=== PATIENT | female | born 1985 | race Caucasian/White ===

== ENCOUNTER 2019-08-05 13:19 | Observation (INO) | payer OTHER, SELFPAY ==
[2019-08-05] VITALS (7 sets, daily range): BP systolic 109–124; BP diastolic 66–80; PULSE 87–95
--- NOTE | 2019-08-05 13:19 | OBADM ---
This patient, Mora Goncalves, admitted to the OB room OB Post 115 for observation. Patient/family oriented to hospital policies and general routines including ID bracelet, bed and alarms, visiting hours, pain management, procedures, bathroom and other care routines, personal items, smoking policy, room service/diet, and visiting hours. Patient/Family are encouraged to report perceived risks to care and to ask questions if they do not understand what they are told or what they should do.
[2019-08-05 14:17] LABS: Add Urine Microscopic? YES; Appearance Urine Cloudy (Clear); Bacteria Urine 4+ /hpf; Bilirubin Urine Negative (Negative); Blood Urine Negative (Negative); Color Urine Yellow (Yellow); Glucose Urine UA Negative (Negative); Ketones Urine Negative (Negative); Leukocyte Esterase Ur Negative LEU/UL (Negative); Mucus Urine Rare /lpf; Nitrate Urine Negative (Negative); Protein Urine Negative (Negative); RBC Urine 0-2 /hpf (0-2); Specific Grav Ur 1.012 (1.001-1.035); Squamous Epithelial Cell Urine Many /hpf (Few); Urobilinogen Urine Negative mg/dL (<2.0); WBC Urine 0-3 /hpf
--- NOTE | 2019-08-15 10:15 | P.PNOB_ITS ---
OB - Triage/Final Diagnosis Visit Information Reason for evaluation: other (False labor) Evaluation Laboratory results: Laboratory Tests 08/05/19 13:59 Urine Color Yellow Urine Appearance Cloudy H Urine pH 7.0 Ur Specific [place] 1.012 Urine Protein Negative Urine Glucose (UA) Negative Urine Ketones Negative Ur Blood (Man) Negative Urine Nitrate Negative Urine Bilirubin Negative Urine Urobilinogen Negative Leukocyte Esterase Rfl Negative Urine RBC 0-2 Urine WBC 0-3 Ur Squamous Epith Cells Many H Urine Bacteria 4+ H Hyaline Casts 1-2 Urine Mucus Rare
== END 2019-08-05 16:10 | disposition home or self-care (01) ==
PROVIDERS: Admitting Provider Obstetrics & Gynecology; Visit Provider Obstetrics & Gynecology
DX: O47.03 False labor before 37 completed weeks of gestation, third trimester (principal); Z3A.35 35 weeks gestation of pregnancy
CPT/HCPCS: 81001; 87086; G0378; G0379

== ENCOUNTER 2019-09-04 05:02 | Inpatient (IN) | payer OTHER, SELFPAY ==
[2019-09-04] VITALS (85 sets, daily range): BP systolic 95–130; BP diastolic 54–96; PULSE 72–106; RESP 16–18; TEMP 36.2–37.3; O2SAT 99–100; BMI 32.9
--- NOTE | 2019-09-04 05:23 | LDADM ---
This patient, Mora Goncalves, was admitted to Labor/Delivery/Recovery 105 on 09/04/19 at 05:02. Plans for labor, pain management and were discussed with patient. Patient/family oriented to hospital policies and general routines including ID bracelet, bed and alarms, visiting hours, pain management, procedures, bathroom and other care routines, personal items, smoking policy, room service/diet and guest tray routines, infant security routines, and visiting hours. Patient/Family are encouraged to report perceived risks to care and to ask questions if they do not understand what they are told or what they should do. See OBIX for further documentation.
[2019-09-04 06:03] LABS: Basophils Percent Auto 0.4 % (0.2-1.2); Eosinophils Absolute Auto 0.2 K/mm3 (0-0.3); Eosinophils Percent Auto 1.8 % (0-4.4); Hematocrit 33.3 % (37.0-47.0); Hemoglobin 10.4 g/dL (12.0-15.0); Immature Granulocyte Absolute 0.04 K/mm3 (0.00-0.031); Immature Granulocyte Percent A 0.4 % (0-0.5); Lymphocytes Absolute Auto 2.76 K/mm3 (0.9-3.2); Lymphocytes Percent Auto 28.7 % (18.3-44.2); Mean Corpuscular HGB Conc 31.2 g/dl (32-36); Mean Corpuscular Hemoglobin 24.8 pg (26-34); Mean Corpuscular Volume 79.5 fl (80-100); Monocytes Absolute Auto 0.8 K/mm3 (0.1-0.6); Monocytes Percent Auto 8.7 % (2.6-8.5); Neutrophils Absolute Auto 5.8 K/mm3 (1.3-6.7); Platelet Count Result 370 k/mm3 (150-375); Red Blood Count 4.19 M/mm3 (4.2-5.4); Red Cell Distribution Width 15.6 % (11.5-14.5); White Blood Count 9.6 K/mm3 (4.5-10.0)
[2019-09-04] MEDS: LACTATED RINGERS 1,000 ML 125 ML IV CONT (06:08)
[2019-09-04] MEDS: OXYTOCIN 30 UNITS/NS 500 ML 30 UNITS/500 ML BAG IV CONT (06:19)
--- NOTE | 2019-09-04 07:41 | P.PNAN_ITS ---
Anes - Eval Pre Procedure Procedure: Labor epidural Date/Time: 09/04/19 07:41 Surgeon: Bhargavi Gerber M.D. Preop Diagnosis: pain during labor Pre Op Diagnosis: induction of labor Patient Data Age: 34 Gender: F Height: 1.7 m Weight: 95.4 kg Last Vital Signs Temp 37.2 C 09/04/19 06:19 Pulse 88 09/04/19 07:31 BP 116/77 09/04/19 07:31 Allergies Allergy/AdvReac Type Severity Reaction Status Date / Time No Known Allergies Allergy Verified 08/17/19 14:37 Home Medications Medication Instructions Recorded Confirmed Type Vitamin D2 50,000 mg PO WEEKLY 08/05/19 09/04/19 History Laboratory Tests 09/04/19 09/04/19 05:56 05:56 WBC 9.6 K/mm3 K/mm3 (4.5-10.0) RBC 4.19 M/mm3 L M/mm3 (4.2-5.4) Hgb 10.4 g/dL L g/dL (12.0-15.0) Hct 33.3 % L % (37.0-47.0) MCV 79.5 fl L fl (80-100) MCH 24.8 pg L pg (26-34) MCHC 31.2 g/dl L g/dl (32-36) RDW 15.6 % H % (11.5-14.5) Plt Count 370 k/mm3 k/mm3 (150-375) MPV 10.0 fl fl (7.4-10.4) Immature Gran % (Auto) 0.4 % % (0-0.5) Neut % (Auto) 60.0 % % (45.5-73.1) Lymph % (Auto) 28.7 % % (18.3-44.2) [place] % (Auto) 8.7 % H % (2.6-8.5) Eos % (Auto) 1.8 % % (0-4.4) Baso % (Auto) 0.4 % % (0.2-1.2) Lymph # (Auto) 2.76 K/mm3 K/mm3 (0.9-3.2) [place] # (Auto) 0.8 K/mm3 H K/mm3 (0.1-0.6) Eos # (Auto) 0.2 K/mm3 K/mm3 (0-0.3) Baso # (Auto) 0.0 K/mm3 K/mm3 (0.0-0.1) Abs Immat Gran (auto) 0.04 K/mm3 H K/mm3 (0.00-0.031) Absolute Neuts (auto) 5.8 K/mm3 K/mm3 (1.3-6.7) Absolute Nucleated RBC 0.0 K/mm3 K/mm3 (0.0-0.012) Nucleated RBC % 0.0 % % (0.0-0.2) RPR Pending Patient hx anesthesia problems: none Family hx anesthesia problems: none [facility] Social History Social History Smoking status: Never smoker Second hand tobacco smoke exposure: No Substance use: never Gender identity (if verbalized by the patient): Female Exam Day of Procedure 09/04/19 07:41
--- NOTE | 2019-09-04 08:21 | WPDOBADMIT ---
Obstetrics - Admit Note Admission Note: record reviewed. No pertinent additions to the history and/or any subsequent changes in the physical findings that are not consistent with the expected course of the were found. Additions to the history and/or subsequent changes in the physical findings follow. None.Elective induction. Cervix /-23 AROM with clear fluid. FHTs reactive
[2019-09-04] MEDS: LACTATED RINGERS 1,000 ML 999 ML IV CONT (08:46)
[2019-09-04 09:40] LABS: Rapid Plasma Reagin Non-Reactive (NonReactive)
[2019-09-04] MEDS: ONDANSETRON INJ 4 MG/2 ML VIAL IV PUSH (11:24)
[2019-09-04] MEDS: METOCLOPRAMIDE HCL INJ 10 MG/2 ML VIAL IV PUSH (12:07)
--- NOTE | 2019-09-04 12:21 | PM.OBPRVD ---
OB - Delivery Note Procedure Delivery date: 09/04/19 Procedure: events: Labor Induction Intrapartal events: None Induction method: AROM and per pitocin protocol Delivery monitor: external FHT and external uterine Route of delivery: Episiotomy description: None Laceration description: None Estimated blood loss (mL): 35 Anesthesia type: Epidural Disposition: floor [place] Baby Weeks of gestation at delivery: 39 presentation: vertex Placenta delivery description: Spontaneous cord vessel description: 3 Vessels score one minute: 8 score five minutes: 9
--- NOTE | 2019-09-04 12:23 | PM.OBDSVD ---
DS: Diagnosis Discharge Diagnosis (1) Vaginal delivery: Code(s): O80 - Encounter for full-term uncomplicated delivery Status: Acute OB - DS: Summary OB Procedures : Ultrasound OB Procedures Intrapartum: Spontaneous Vag Delivery OB Procedures: : None Peripartum Data Delivery Method: Natural Vaginal Laceration description: None Status at Discharge Functional status at discharge: independent ambulation Overall status at discharge: patient is progressing back to baseline Time Spent with Patient Time attestation: Total time spent providing and/or coordinating discharge services: DS: Data Data Completed and Pending Labs on day of discharge: Labs from last 24 hours 09/04/19 09/04/19 09/04/19 05:56 05:56 05:56 WBC 9.6 RBC 4.19 L Hgb 10.4 L Hct 33.3 L MCV 79.5 L MCH 24.8 L MCHC 31.2 L RDW 15.6 H Plt Count 370 MPV 10.0 Immature Gran % (Auto) 0.4 Neut % (Auto) 60.0 Lymph % (Auto) 28.7 [place] % (Auto) 8.7 H Eos % (Auto) 1.8 Baso % (Auto) 0.4 Lymph # (Auto) 2.76 [place] # (Auto) 0.8 H Eos # (Auto) 0.2 Baso # (Auto) 0.0 Abs Immat Gran (auto) 0.04 H Absolute Neuts (auto) 5.8 Absolute Nucleated RBC 0.0 Nucleated RBC % 0.0 RPR Non-reactive Blood Type A Positive Antibody Screen Negative Discharge Plan Discharge Attending physician on discharge: Bhargavi Gerber Discharging Clinician: Bhargavi Gerber Anticipated Discharge Date/Time: 09/05/19 15:56 Patient Disposition: Home, Self-Care Activity: pelvic rest Diet: regular Patient Instructions: Antibiotic Form Stand Alone Forms: General Discharge Information Follow-up/Referrals: Bhargavi Gerber MD [Physician] - 6 Weeks Discharge Medications: New Slynd 4 mg (28) tablet 4 mg PO DAILY 24 Days Qty: 24 RF: 6 Continued Vitamin D2 50,000 mg PO WEEKLY RF: 0 Date of admission: 09/04/19 05:02 Primary Care Provider: UNKNOWN,DOCTOR Admitting Provider: Bhargavi Gerber Attending physician on admission: Bhargavi Gerber Condition: Stable
[2019-09-04] MEDS: OXYTOCIN 30 UNITS/NS 500 ML 30 UNITS/500 ML BAG 125 UNITS IV CONT (12:45)
[2019-09-04] MEDS: IBUPROFEN 600 MG TABLET PO (16:05)
--- NOTE | 2019-09-04 16:35 | OBPPTRN ---
Addendum entered by Radha Oneal RN 09/04/19 16:36: Pt transferred at 1607. Original Note: Patient transferred to post room # 285 via wheelchair. Oriented to unit, room, information board, admission packet and security measures. Patient verbalizes understanding.
[2019-09-05] MEDS: IBUPROFEN 600 MG TABLET PO (00:07)
[2019-09-05 05:46] LABS: Hematocrit 29.8 % (37.0-47.0); Hemoglobin 9.1 g/dL (12.0-15.0)
--- NOTE | 2019-09-05 07:54 | PM.OBPNVD ---
OB - PN: Subj Subjective Date/time seen: 09/05/19 07:54 Patient comments: pain well controlled and other (c/o diarrhea) [place] baby status: doing well [place] feeding status: exclusively breast feeding OB - PN: Obj Data Labs CBC & Chem 7: 09/05/19 04:48 Labs: Laboratory Results - last 24 hr 09/04/19 09/05/19 05:56 04:48 Hgb 9.1 L Hct 29.8 L RPR Non-reactive OB - PN A/P Plan day: 1 Plan: discharge home and follow up 6 weeks Comments: rec Immodium for diarrhea plans OC's for bc Time Spent With Patient Time: Total time spent is greater than 50% in coordination of care (as documented) at patient's floor/unit and/or counseling patient: Exam : Bimanual exam- vagina & uterus: other (Uterus firm, nt @U)
[2019-09-05 07:55] VITALS: BP 120/84; PULSE 67; RESP 16; TEMP 37.2; O2SAT 100
--- NOTE | 2019-09-05 08:45 | PC.NURSE ---
Consult with pt., mother reports this is 6th child. Mother has a few issues with last child and a lip tie. Mother states this is eagerly latching without difficulties or discomfort. Mother is able to independently latch infant with appropriate positioning/alignment. She denies any nipple discomfort, is feeding as required and waking to feed if needed. is currently meeting outcomes for weight, output, jaundice and feeding frequencies. Mother is requesting 24 hour discharge. Reviewed infant feeding cues, frequencies, duration of feedings, feeding elimination flow sheet, and signs of adequate intake. Discussed nipple care. Mother is feeding as required and waking infant to feed if needed. Infant is currently meeting outcomes for weight, output, jaundice and feeding frequencies. Mother states she feels confident to continue effective at home. Reviewed transition to breast milk, signs of adequate intake, and engorgement/relief. Instructed to call ICP if intake/output less than required. Reviewed regular medications mother is taking. Information provided per [facility]. Reviewed community resources on the [facility] website and in the Mom/Baby guide. Information on outpatient services provided. Mother has no further questions at this time.
--- NOTE | 2019-09-05 09:10 | WPDANLDNPN2 ---
Anes-Prog Note L&D-Neuraxial Date/Time: 09/05/19 09:10 Patient feedback: Patient satisfied with post-operative pain management.
--- NOTE | 2019-09-05 09:10 | WPDANLDPN2 ---
Anes-Prog Note L&D Date/Time: 09/05/19 09:10 Comfortable throughout: labor and delivery Neuraxial method: epidural Epidural/Spinal procedure site: clean & non-tender Neuro status: Neuro function grossly intact. Cardiovascular status: normal Respiratory status: normal Airway patency: baseline Mental status: baseline Post-Op hydration status: normal Vital Signs: Last Vital Signs Temp 37.2 C 09/05/19 07:55 Pulse 67 09/05/19 07:55 Resp 16 09/05/19 07:55 BP 120/84 09/05/19 07:55 Pulse Ox 100 09/05/19 07:55 I/O: Intake & Output 09/04/19 09/05/19 09/05/19 23:59 07:59 15:59 Intake Total 1500 Output Total 308 Balance 1192 Post-procedural complaints: none Patient feedback: Patient satisfied with anesthetic care.
== END 2019-09-05 15:27 | disposition home or self-care (01) | DRG 807 ==
LOC: ANHLDR 12:24 → ANHOB2 16:15
PROVIDERS: Admitting Provider Obstetrics & Gynecology Gynecology; Visit Provider Obstetrics & Gynecology Gynecology
DX: O99.344 Other mental disorders complicating childbirth (principal); Z37.0 Single live birth; Z3A.39 39 weeks gestation of pregnancy; O69.81X0 Labor and delivery complicated by cord around neck, without compression, not applicable or unspecified; F32.9 Major depressive disorder, single episode, unspecified; O99.52 Diseases of the respiratory system complicating childbirth; J45.909 Unspecified asthma, uncomplicated
CPT/HCPCS: 36415; 85014; 85018; 85025; 86592; 86850; 86900; 86901; A9270; J2405; J2590; J2765; J2795; J7120